=== PATIENT | male | born 1990 | race Caucasian/White ===

== ENCOUNTER 2019-01-21 22:35 | Emergency (ER) | payer BC ==
--- NOTE | 2019-01-21 23:28 | CR ---
INDICATION: pain following fall. 3 images. no prior COMPARISON: None. FINDINGS: Three views of the left ankle demonstrate normal mineralization and alignment. There is an oblique minimally displaced fracture of the distal fibula. This is best seen on the lateral view extending from approximately the tibial plafond and superiorly. The ankle mortise appears preserved. There is mild associated soft tissue swelling. IMPRESSION: Minimally displaced oblique fracture of the distal fibula (Wade B). Dictated by Emilio Liz MD @ 01/21/2019 11:26:12 PM Dictated by: Emilio Liz MD @ 01/21/2019 23:26:21 (Electronically Signed)
--- NOTE | 2019-01-22 | EDM.PDOC ---
ED HPI GENERAL MEDICAL PROBLEM - General Chief Complaint: Lower Extremity Injury/Pain Stated Complaint: INJURED FOOT LEFT Time Seen by Provider: 01/21/19 23:56 Source of Information: Reports: Patient - History of Present Illness INITIAL COMMENTS - FREE TEXT/NARRATIVE: HISTORY AND PHYSICAL: History of present illness: []Patient was wrestling with his nima tonight and developed left ankle pain unable to bear weight 5 out of 10 in exact mechanism is unknown Fever nausea vomiting chills sweats Review of systems: As per history of present illness and below otherwise all systems reviewed and negative. Past medical history: As per history of present illness and as reviewed below otherwise noncontributory. Surgical history: As per history of present illness and as reviewed below otherwise noncontributory. Social history: No reported history of drug or alcohol abuse. Family history: As per history of present illness and as reviewed below otherwise noncontributory. Physical exam: HEENT: Atraumatic, normocephalic, pupils reactive, negative for conjunctival pallor or scleral icterus, mucous membranes moist, throat clear, neck supple, nontender, trachea midline. Lungs: Clear to auscultation, breath sounds equal bilaterally, chest nontender. Heart: S1S2, regular, negative for clicks, rubs, or JVD. Abdomen: Soft, nondistended, nontender. Negative for masses or hepatosplenomegaly. Negative for costovertebral tenderness. Pelvis: Stable nontender. Genitourinary: Deferred. Rectal: Deferred. Extremities: Swelling about the left ankle tenderness unable to bear weight, negative for cords or calf pain. Neurovascular unremarkable. Neuro: Awake, alert, oriented. Cranial nerves II through XII unremarkable. Cerebellum unremarkable. Motor and sensory unremarkable throughout. Exam nonfocal. Diagnostics: [Ankle 3 views ] Therapeutics: cam Boot Crutches Follow-up with ortho Nonweightbearing ] Impression: [ left ankle fracture ] Definitive disposition and diagnosis as appropriate pending reevaluation and review of above. Left Ankle Pain Score (Numeric/FACES): 7 - Related Data Allergies Allergy/AdvReac Type Severity Reaction Status Date / Time amoxicillin Allergy Hives Verified 01/21/19 22:58 Penicillins Allergy Hives Verified 01/21/19 22:58 Home Meds: Home Meds . [No Known Home Meds] 01/21/19 [History] Past Medical History Cardiovascular History: Reports: None Respiratory History: Reports: None Gastrointestinal History: Reports: None Genitourinary History: Reports: None Musculoskeletal History: Reports: None Neurological History: Reports: None Psychiatric History: Reports: Anxiety Endocrine/Metabolic History: Reports: None Hematologic History: Reports: None Immunologic History: Reports: None Oncologic (Cancer) History: Reports: None Dermatologic History: Reports: None - Infectious Disease History Infectious Disease History: Reports: Chicken Pox - Past Surgical History Head Surgeries/Procedures: Reports: None HEENT Surgical History: Reports: Oral Surgery Social & Family History - Tobacco Use Smoking Status *Q: Never Smoker - Recreational Drug Use Recreational Drug Use: Yes Drug Use in Last 12 Months: No Recreational Drug Type: Reports: Marijuana/Hashish Recreational Drug Use Frequency: Not Used In Over 6 Months Review of Systems - Review of Systems Review Of Systems: See Below ED EXAM, GENERAL - Physical Exam Exam: See Below Course - Vital Signs Last Recorded V/S: Last Vital Signs Temp 98.3 F 01/21/19 22:55 Pulse 126 H 01/21/19 22:55 Resp 18 01/21/19 22:55 BP 123/65 01/21/19 22:55 Pulse Ox 95 01/21/19 22:55 Departure - Departure Time of Disposition: 23:57 Disposition: Home, Self-Care 01 Condition: Good Clinical Impression: Closed left ankle fracture - Discharge Information Referrals: PCP,None [Primary Care Provider] - Additional Instructions: Cam boot Crutches Nonweightbearing Follow-up with orthopedist, call phone number below to schedule appropriate follow-up [facility] [address] [place] [address] The following information is given to patients seen in the emergency department who are being discharged to home. This information is to outline your options for follow-up care. We provide all patients seen in our emergency department with a follow-up referral. The need for follow-up, as well as the timing and circumstances, are variable depending upon the specifics of your emergency department visit. If you don't have a primary care physician on staff, we will provide you with a referral. We always advise you to contact your personal physician following an emergency department visit to inform them of the circumstance of the visit and for follow-up with them and/or the need for any referrals to a consulting specialist. The emergency department will also refer you to a specialist when appropriate. This referral assures that you have the opportunity for follow-up care with a specialist. All of these measure are taken in an effort to provide you with optimal care, which includes your follow-up. Under all circumstances we always encourage you to contact your private physician who remains a resource for coordinating your care. When calling for follow-up care, please make the office aware that this follow-up is from your recent emergency room visit. If for any reason you are refused follow-up, please contact the [facility] emergency department at and asked to speak to the emergency department charge nurse.
== END 2019-01-22 00:20 | disposition home or self-care (01) ==
LOC: MW.ED 22:35
DX: S82.832A Other fracture of upper and lower end of left fibula, initial encounter for closed fracture (principal); Y93.72 Activity, wrestling
CPT/HCPCS: 73610-26-LT; 73610-LT; 99283; 99283-25